=== PATIENT | male | born 1985 | race Two or more races ===

== ENCOUNTER 2024-05-27 16:40 | Emergency (ER) | payer SELFPAY ==
[2024-05-27 16:41] VITALS: BMI 32.8
[2024-05-27 17:00] VITALS: BP 149/95; PULSE 103; RESP 18; TEMP 37.1; O2SAT 97
--- NOTE | 2024-05-27 17:19 | XR_ITS ---
Examination: Duplex scan of the lower extremity, unilateral right complete Date and time of exam: May 27, 2024 6 1953 hrs. Indications: Right leg pain beginning 3 months ago, history knee surgery March 19, 2024 Technique: Duplex scan of the extremity veins using B-mode/grayscale imaging and Doppler spectral analysis and color flow Attention is directed to internal echogenicity, compression and augmentation involving these veins, color flow assessment, spectral analysis Findings: Major deep venous structures in the extremity demonstrate normal course and caliber. There is no evidence of deep vein thrombosis. Normal color flow and spectral analysis Impression: Negative for DVT..
--- NOTE | 2024-05-27 17:19 | XR_ITS ---
Examination: PA lateral chest 2 views Technique: Upright PA lateral chest 2 views Exam date and time: May 27, 2024 at 1720 hrs. Indications: Onset chest pain today. Findings: Normal heart size No pneumonia or pulmonary edema The osseous structures are intact Impression: No active disease
--- NOTE | 2024-05-27 17:19 | EKG_ITS ---
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
--- NOTE | 2024-05-27 17:20 | XR_ITS ---
Examination: CT brain head without contrast. 2-D sagittal coronal reconstructions Date and time of exam:May 27, 2024 1736 hrs. Indications: Headache dizziness paresthesias today CTDI: vol (mGy):55.9 DLP: (mGycm):1151 Technique: Multiple CT axial sections of the brain have been obtained, 5 mm slice thickness. Contrast has not been administered. 2-D sagittal, coronal reconstructions have been obtained Low dose protocols were performed. One or more of the following dose reduction techniques were used; automated exposure control, adjustment of the mA and/or KV according to patient size, use of iterative reconstruction technique. Findings: No significant ventricular enlargement. Intra-axial or extra-axial hemorrhage density is not seen. No mass effect or midline shift Basal cisterns are not remarkable. Fourth ventricle is midline. Cranial vault intact. Impression: Negative for acute hemorrhage, mass effect or midline shift Advise clinical correlation and follow-up accordingly
--- NOTE | 2024-05-27 17:27 | PD.EDRME ---
Rapid Medical Screening Exam RME Arrival date/time: 05/27/24 16:40 This is a 38-year-old male that comes in with complaints of entire body feeling tingly. Patient states that he is able to see but feels like everything looks pixelated at times. Patient reports feeling dizzy and states he that he feels like he is in a pass out. Patient denies chest pain and shortness of breath. Patient states that he picked up a dollar at the gym off the floor and does not know if his symptoms started after that or if this is even related. Patient states that he has had right leg pain specifically behind the knee for the past 8 months. Patient had a meniscus tear and has had swelling and redness around that area. Patient thinks that he has a blood clot. Patient denies any past medical history. I have greeted and performed a focused initial assessment of this patient. Initial appropriate labs ordered at this time. A comprehensive ED assessment and evaluation of the patient and analysis of all test and completion of medical decision making process will be conducted by additional ED provider. Chief Complaint: Dizziness Time Seen by Provider: 05/27/24 16:44 Vital signs: Vital Signs Temperature 98.8 F 05/27/24 17:00 Pulse Rate 103 H 05/27/24 17:00 Respiratory Rate 18 05/27/24 17:00 Blood Pressure 149/95 H 05/27/24 17:00 Pulse Oximetry (%) 97 05/27/24 17:00 Oxygen Delivery Method Room Air 05/27/24 17:00
[2024-05-27 18:10] LABS: Basophils % (Auto) 0 % (0-2.5); Eosinophils # (Auto) 0.1 Thou/mm3 (0.0-0.5); Eosinophils % (Auto) 1 % (0-10); Hematocrit 41.5 % (41.0-53.0); Hemoglobin 14.4 g/dL (13.5-16.0); Immature Granulocytes % (Auto) 0 % (0-0); Immature Granulocytes Auto 0.01 Thou/mm3 (0.00-0.00); Lymphocytes # (Auto) 1.8 Thou/mm3 (1.0-4.8); Lymphocytes % (Auto) 27 % (10-50); Mean Corpuscular HGB Conc 34.7 g/dl (31.0-37.0); Mean Corpuscular Hemoglobin 30.4 pg (25.0-35.0); Mean Corpuscular Volume 88 fL (80-100); Monocytes # (Auto) 0.5 Thou/mm3 (0.0-0.8); Monocytes % (Auto) 7 % (0-12); Neutrophils # (Auto) 4.4 Thou/mm3 (1.8-7.7); Neutrophils % (Auto) 65 % (37-80); Nucleated Red Blood Cell % 0 /100 WBC (0); Platelet Count 162 Thou/mm3 (140-440); RDW Standard Deviation 39.1 fL (35.1-43.9); Red Blood Count 4.73 Miln/mm3 (4.50-5.90); White Blood Count 6.7 Thou/mm3 (3.8-10.6)
[2024-05-27 18:17] LABS: Collection Type, Urine Voided; Squamous Epithelial Cell,Urine 0 /hpf (0-5)
[2024-05-27 18:24] LABS: Bilirubin,Urine Negative (Negative); Blood,Urine Negative (Negative); Clarity,Urine Clear (Clear/Hazy); Color,Urine Colorless (Lt Yel-Yel); Culture Indicated,Urine Not Indicated; Glucose, Urine Negative (Negative); Ketones,Urine Negative (Negative); Leukocyte Esterase,Urine Negative (Negative); Nitrite,Urine Negative (Negative); PH,Urine 6.5 (5.0-7.0); Protein,Urine Negative (Neg - Trace); RBC,Urine < 1 /hpf (0-3); Specific Gravity,Urine 1.007 (1.001-1.035); Urobilinogen,Urine Negative mg/dL (0.0-1.0); WBC,Urine < 1 /hpf (0-5)
[2024-05-27 18:25] LABS: Alanine Aminotransferase 56 U/L (10-49); Albumin, Serum 4.9 gm/dL (3.5-5.0); Albumin/Globulin Ratio 1.6 (1.2-2.2); Alkaline Phosphatase 59 U/L (46-116); Anion Gap 8 (7-16); Aspartate Amino Transferase 48 U/L (0-34); BUN/Creatinine Ratio 10 Ratio (12-20); Bilirubin,Total 0.5 mg/dL (0.3-1.2); Blood Urea Nitrogen 12 mg/dL (9-23); Carbon Dioxide 25.1 mMol/L (20.0-31.0); Chloride 109 mMol/L (98-107); Creatinine (Component) 1.2 mg/dL (0.6-1.3); Estimated Creatinine Clearance 101.6 mL/min (>60); Globulin 3.1 gm/dL (2.3-3.5); Glucose 101 mg/dL (74-106); Lipase 35 U/L (12-53); Osmolality,Calculated 282 (275-295); Potassium 3.9 mMol/L (3.4-5.1); Sodium 142 mMol/L (136-145); Troponin I < 0.002 ng/mL (0.0-0.045); eGFR > 60 See Note
[2024-05-27 18:30] LABS: Amphetamine/Methamp Scrn,U Negative (Negative); Barbiturate Screen,Urine Negative (Negative); Benzodiazepines Screen,Urine Negative (Negative); Benzoylecgonine Screen, Ur Negative (Negative); Fentanyl Screen,Urine Negative (Negative); Opiate Screen,Urine Negative (Negative); THC Screen,Urine Negative (Negative)
[2024-05-27 19:26] VITALS: BP 136/76; PULSE 92; RESP 18; TEMP 36.8; O2SAT 96
--- NOTE | 2024-05-27 21:11 | PD.EDADULT ---
ED General RME/HPI General Chief complaint: Dizziness Stated complaint: DIZZY, CHILLS, TINGLY EVERYWHERE STARTED TODAY Time Seen by Provider: 05/27/24 16:44 Arrival date/time: 05/27/24 16:40 CC: Multiple complaints including tingling in the body, numbness in his upper extremities chronic pain behind the right knee for 8 months. Patient has no primary care has no medications. Currently the patient has some heaviness in his arms bilaterally but no other complaints states all other symptoms have resolved. RME / HPI RME / HPI narrative: 05/27/24 16:40 This is a 38-year-old male that comes in with complaints of entire body feeling tingly. Patient states that he is able to see but feels like everything looks pixelated at times. Patient reports feeling dizzy and states he that he feels like he is in a pass out. Patient denies chest pain and shortness of breath. Patient states that he picked up a dollar at the gym off the floor and does not know if his symptoms started after that or if this is even related. Patient states that he has had right leg pain specifically behind the knee for the past 8 months. Patient had a meniscus tear and has had swelling and redness around that area. Patient thinks that he has a blood clot. Patient denies any past medical history. I have greeted and performed a focused initial assessment of this patient. Initial appropriate labs ordered at this time. A comprehensive ED assessment and evaluation of the patient and analysis of all test and completion of medical decision making process will be conducted by additional ED provider. Related Data Home Medications ?Medication ?Instructions ?Recorded ?Confirmed melatonin 10 mg tablet 10 mg PO HS PRN Insomnia 03/11/22 03/11/22 Allergies Allergy/AdvReac Type Severity Reaction Status Date / Time peanut Allergy Intermediate ITCHING Verified 05/27/24 16:45 shrimp Allergy Swelling Verified 05/27/24 16:45 of Lip/Tongue/Throat Review of Systems Review of Systems Narrative Review of Systems: GEN: No fever, no chills, no weight loss EYES: No discharge, no visual changes, no pain HEENT: No ear pain, no congestion, no sore throat PULM: No shortness of breath, no cough, no congestion CV: No chest pain, no dyspnea on exertion, no palpitations GI: No nausea, no vomiting, no diarrhea, no pain, no constipation : No frequency, no urgency, no dysuria MUSC/SKEL: + joint pain, no back pain SKIN: No rash PSYCH: No hallucinations, no depression HEME/LYMPH: No easy bleeding or bruising tendencies NEURO: No weakness, no headache,+ body tingling Past Medical History Past Medical History NEUROLOGIC: Negative Neurological Disorders, Seizures or Head Trauma CARDIAC: Negative Cardiac Disorders, Congestive Heart Failure, Edema, Cellulitis or Varicose Veins RESPIRATORY: Negative Chronic Obstructive Pulmonary Disease (COPD), Tuberculosis, Pulmonary Embolism or Sleep Apnea GASTROINTESTINAL: Negative Gastrointestinal Disorders or Hepatitis GENITOURINARY: Negative Genitourinary Disorders or Renal Disease MUSCULOSKELETAL: Negative Musculoskeletal Disorders ENT: Negative Head Trauma ENDOCRINE: Negative Endocrine Disorders, Diabetes Mellitus Type 1 or Diabetes Mellitus Type 2 HEMATOLOGIC: Negative Blood Disorders OTHER HISTORY: Positive Shingles (2018) and Chicken Pox; Negative Hospitalization, Autoimmune Disease, Falls, Blood Transfusions, Blood Transfusion Reaction, Anesthesia Reactions, Chemotherapy, Radiation Therapy, MRSA, Measles, Mumps or Cancer Family History FAMILY HISTORY: Positive Family Cardiac Disorders (FATHER ([place])) and Family Surgery (MOTHER); Negative Family Psychiatric Problems, Family Respiratory Disorders, Family Gastrointestinal Problems, Family Cancer or Family Anesthesia Reaction Surgical History SURGICAL: Negative Pacemaker Social History SMOKING STATUS: Former smoker SUBSTANCE USE: does not use ED Exam Narrative Physical exam: [General: Not in any acute distress Head normocephalic HEENT: Eyes pupils are PERRLA EOMs are intact hide the patient has mild sallow upper and lower lid color. Pupils are PERRLA EOMs are intact, all other subsystems of HEENT are within acceptable limits Neck is supple nontender Chest equal chest rise nontender to palpation Respiratory: Clear to auscultation no wheezes crackles or rubs CV: Rate rhythm is regular no murmurs rubs or clicks Abdomen is soft nontender no masses positive bowel sounds all 4 quadrants Back: No CVA tenderness no spinous process tenderness from cervical spine thoracic and lumbar spine Skin: Intact no petechiae rash induration ulceration or crepitus Extremities: Moving all extremity against resistance cap refill less than 2 seconds neurosensory intact Neuro: Awake alert oriented x3 Glascow coma 15 no focal deficits] Course Quality Measures none Orders Category Date Time Status EKG (ED ONLY) *Do not use* NOW Care 05/27/24 17:[address] head/brain wo con Stat Exams 05/27/24 17:20 Completed EKG (ED Only) Stat Exams 05/27/24 17:19 Draft US venous duplex LE RT Stat Exams 05/27/24 17:19 Taken XR chest 2V Stat Exams 05/27/24 17:19 Completed CBC Stat Lab 05/27/24 17:49 Completed Comprehensive Metabolic Panel Stat Lab 05/27/24 17:49 Completed Drug Screen,Urine Stat Lab 05/27/24 18:13 Completed Lipase Stat Lab 05/27/24 17:49 Completed Troponin I Stat Lab 05/27/24 17:49 Completed Urinalysis, C/S if Indicated Stat Lab 05/27/24 18:13 Completed Vital Signs Vital signs: Vital Signs Temperature 98.8 F 05/27/24 17:00 Pulse Rate 103 H 05/27/24 17:00 Respiratory Rate 18 05/27/24 17:00 Blood Pressure 149/95 H 05/27/24 17:00 Pulse Oximetry (%) 97 05/27/24 17:00 Oxygen Delivery Method Room Air 05/27/24 17:00 [facility] Patient data External records reviewed:: [facility] previous records Clinical information provided by:: patient Social determinants that could affect healthcare access:: none Patient has the following chronic illnesses:: None How is presenting disease/condition affected by chronic disease/condition?: uneffected by Evaluation data The following diagnostics were reviewed and interpreted by me:: lab results, radiology exam(s) and EKG tracing(s) Lab and/or radiology exams considered but not ordered:: EKG performed at 1725 shows a ventricular of 96 NE interval 153 QRS of 92 QTc of 399 normal sinus rhythm CBC shows no acute leukocytosis anemia thrombocytopenia CMP shows a chloride of 109 no other electrolyte imbalances renal impairment transaminitis is or T. bili elevation Lipase of 35 Urine is negative UDS is negative head CT is interpreted by me read by radiology as negative Ultrasound of the leg is negative for DVT. Interpretation Summary: The patient has no acute finding quires emergent or immediate intervention although I suspect the patient has sleep apnea secondary to the comment by significant other that he snores loudly and the sound will look around his eyes. Patient will be discharged to follow-up with a primary care provider and consider sleep apnea study. Medications Medications considered but not ordered:: None Medication administrations:: None Consultations Consultation(s) initiated? (list below): No Diagnosis Differential Diagnosis ED Complaint MDM: ACS OK headache Most likely diagnosis given after review of the tests above:: Leg pain Admission Indicated Admission indicated?: not indicated Explain why admission is indicated or not indicated:: None Admission Request Was there a request for admission?: No Disposition Plan Disposition Plan: Discharge Discharge Attestation Discharge Attestation: The patient and all family members were given an opportunity to ask questions and understood the discharge instructions. Discharge instructions specifically effects, indications for sooner follow up or return to the emergency department, and the expected course of current diagnosis. Patient condition: Stable Medical Decision Making Differential Diagnosis Differential Diagnosis: ACS [place] headache Lab Data 05/27/24 17:49 05/27/24 17:49 Labs: Lab Results 05/27/24 05/27/24 Range/Units 17:49 18:13 WBC 6.7 (3.8-10.6) Thou/mm3 RBC 4.73 (4.50-5.90) Miln/mm3 Hgb 14.4 (13.5-16.0) g/dL Hct 41.5 (41.0-53.0) % MCV 88 (80-100) fL MCH 30.4 (25.0-35.0) pg MCHC 34.7 (31.0-37.0) g/dl RDW Std Deviation 39.1 (35.1-43.9) fL Plt Count 162 (140-440) Thou/mm3 Neut % (Auto) 65 (37-80) % Lymph % (Auto) 27 (10-50) % [place] % (Auto) 7 (0-12) % Eos % (Auto) 1 (0-10) % Baso % (Auto) 0 (0-2.5) % Neut # (Auto) 4.4 (1.8-7.7) Thou/mm3 Lymph # (Auto) 1.8 (1.0-4.8) Thou/mm3 [place] # (Auto) 0.5 (0.0-0.8) Thou/mm3 Eos # (Auto) 0.1 (0.0-0.5) Thou/mm3 Baso # (Auto) 0.0 (0.0-0.2) Thou/mm3 Immature Gran # (Auto) 0.01 H (0.00-0.00) Thou/mm3 Absolute Nucleated RBC 0.00 (0.00-0.00) Thou/mm3 Immature Gran % 0 (0-0) % Nucleated RBC % 0 (0) /100 WBC Sodium 142 (136-145) mMol/L Potassium 3.9 (3.4-5.1) mMol/L Chloride 109 H (98-107) mMol/L Carbon Dioxide 25.1 (20.0-31.0) mMol/L Anion Gap 8 (7-16) BUN 12 (9-23) mg/dL Creatinine 1.2 (0.6-1.3) mg/dL Estim Creat Clear Calc 101.6 (>60) mL/min eGFR > 60 (60 - ) See Note BUN/Creatinine Ratio 10 L (12-20) Ratio Glucose 101 (74-106) mg/dL Calculated Osmolality 282 (275-295) Calcium 10.0 (8.3-10.6) mg/dL Corrected Calcium 10.0 (8.5-10.1) mg/dL Total Bilirubin 0.5 (0.3-1.2) mg/dL AST 48 H (0-34) U/L ALT 56 H (10-49) U/L Alkaline Phosphatase 59 (46-116) U/L Troponin I < 0.002 (0.0-0.045) ng/mL Total Protein 8.0 (5.7-8.2) gm/dL Albumin 4.9 (3.5-5.0) gm/dL Globulin 3.1 (2.3-3.5) gm/dL Albumin/Globulin Ratio 1.6 (1.2-2.2) Lipase 35 (12-53) U/L Ur Collection Type Voided Urine Color Colorless A (Lt Yel-Yel) Urine Clarity Clear (Clear/Hazy) Urine pH 6.5 (5.0-7.0) Ur Specific [place] 1.007 (1.001-1.035) Urine Protein Negative (Neg - Trace) Urine Glucose (UA) Negative (Negative) Urine Ketones Negative (Negative) Urine Blood Negative (Negative) Urine Nitrite Negative (Negative) Urine Bilirubin Negative (Negative) Urine Urobilinogen (Auto) Negative (0.0-1.0) mg/dL Ur Leukocyte Esterase Negative (Negative) Urine RBC < 1 (0-3) /hpf Urine WBC < 1 (0-5) /hpf Ur Squamous Epith Cells 0 (0-5) /hpf Urine Bacteria None (None) Ur Culture Indicated? Not Indicated Urine Opiates Screen Negative (Negative) Urine Fentanyl Screen Negative (Negative) Ur Barbiturates Screen Negative (Negative) U Amphetamin/Meth Scrn Negative (Negative) U Benzodiazepines Scrn Negative (Negative) U Cocaine Metab Screen Negative (Negative) U Marijuana (THC) Screen Negative (Negative) Discharge Plan Plan Patient Disposition: HOME (Self Care) Patient condition on transfer: Stable Prescriptions/Referrals Prescriptions/Med Rec: No Action melatonin 10 mg Tablet 10 mg PO HS PRN (Reason: Insomnia) Referrals: Juan J Malhotra MD [Physician] - In 1 week No Primary/Family,Physician [Primary Care Provider] - In 1 week Problem List Clinical Impression: Chronic leg pain, Body aches Patient/Caregiver Discharge Instructions Other Activity Instructions:: There is no acute finding in your workup including laboratory results CT imaging of your head EKG and chest x-ray. I would consider following up with a primary care provider and consider sleep apnea study. If there is a worsening of symptoms keep diary of the symptoms return the emergency room for reevaluation. Education Materials: Self-Care for Strains and Sprains Print Language: Macedonian Stand Alone Forms: Patsy Award Info., Work/School Release, Patient Portal Info Letter LATOSHA/RUDY Supervising Physician LATOSHA/RUDY Supervising Physician: Amaury Howard ENP
== END 2024-05-27 21:32 | disposition home or self-care (01) ==
PROVIDERS: Nurse Practitioner Family; Emergency Provider Emergency Medicine
DX: G89.29 Other chronic pain (principal); M79.604 Pain in right leg; R42 Dizziness and giddiness
CPT/HCPCS: 36415; 70450; 71046; 80053; 80307; 81001; 83690; 84484; 85025; 93005; 93971; 99284

== ENCOUNTER 2024-06-16 22:33 | Emergency (ER) | payer MEDICAID, SELFPAY ==
[2024-06-16 22:34] VITALS: BMI 32.1
--- NOTE | 2024-06-16 22:37 | EKG_ITS ---
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
--- NOTE | 2024-06-16 22:42 | PD.EDRME ---
Rapid Medical Screening Exam RME Arrival date/time: 06/16/24 22:33 Chief Complaint: General Adult/Misc Complain Vital signs: Vital Signs Temperature 98 F 06/16/24 22:47 Pulse Rate 90 06/16/24 22:47 Respiratory Rate 18 06/16/24 22:47 Blood Pressure 146/103 H 06/16/24 22:47 Pulse Oximetry (%) 98 06/16/24 22:47 RME Narrative: Chest pain started tonight. Also reports DONALDSON x1 week
--- NOTE | 2024-06-16 22:43 | XR_ITS ---
Examination: PA chest single view TECHNIQUE: Upright PA chest single view Exam date and time: June 16 2024 2149 hours INDICATIONS: Chest pain today. FINDINGS: Normal heart size Lungs are clear. The osseous structures are intact IMPRESSION: No active disease
[2024-06-16 22:47] VITALS: BP 146/103; PULSE 90; RESP 18; TEMP 36.6; O2SAT 98
[2024-06-16] MEDS: CYCLObenzaPRINE 5 MG TABLET 10 MG PO (23:27)
[2024-06-16] MEDS: KETOROLAC INJ 60 MG/2 ML VIAL 30 MG IM (23:27)
[2024-06-16 23:36] LABS: Basophils % (Auto) 0 % (0-2.5); Eosinophils # (Auto) 0.1 Thou/mm3 (0.0-0.5); Eosinophils % (Auto) 1 % (0-10); Hematocrit 39.8 % (41.0-53.0); Hemoglobin 13.8 g/dL (13.5-16.0); Immature Granulocytes % (Auto) 0 % (0-0); Immature Granulocytes Auto 0.01 Thou/mm3 (0.00-0.00); Lymphocytes # (Auto) 2.6 Thou/mm3 (1.0-4.8); Lymphocytes % (Auto) 38 % (10-50); Mean Corpuscular HGB Conc 34.7 g/dl (31.0-37.0); Mean Corpuscular Hemoglobin 30.6 pg (25.0-35.0); Mean Corpuscular Volume 88 fL (80-100); Monocytes # (Auto) 0.5 Thou/mm3 (0.0-0.8); Monocytes % (Auto) 8 % (0-12); Neutrophils # (Auto) 3.6 Thou/mm3 (1.8-7.7); Neutrophils % (Auto) 53 % (37-80); Nucleated Red Blood Cell % 0 /100 WBC (0); Platelet Count 153 Thou/mm3 (140-440); RDW Standard Deviation 39.7 fL (35.1-43.9); Red Blood Count 4.51 Miln/mm3 (4.50-5.90); White Blood Count 6.8 Thou/mm3 (3.8-10.6)
[2024-06-16 23:59] LABS: Alanine Aminotransferase 49 U/L (10-49); Albumin, Serum 4.7 gm/dL (3.5-5.0); Albumin/Globulin Ratio 1.5 (1.2-2.2); Alkaline Phosphatase 57 U/L (46-116); Anion Gap 10 (7-16); Aspartate Amino Transferase 33 U/L (0-34); BUN/Creatinine Ratio 12 Ratio (12-20); Bilirubin,Total 0.7 mg/dL (0.3-1.2); Blood Urea Nitrogen 14 mg/dL (9-23); Calcium 10.1 mg/dL (8.3-10.6); Calcium (Corrected) 10.1 mg/dL (8.5-10.1); Carbon Dioxide 26.2 mMol/L (20.0-31.0); Chloride 106 mMol/L (98-107); Creatinine (Component) 1.2 mg/dL (0.6-1.3); Estimated Creatinine Clearance 100.6 mL/min (>60); Globulin 3.2 gm/dL (2.3-3.5); Glucose 93 mg/dL (74-106); Osmolality,Calculated 283 (275-295); Potassium 3.8 mMol/L (3.4-5.1); Sodium 142 mMol/L (136-145); Total Protein 7.9 gm/dL (5.7-8.2); Troponin I < 0.002 ng/mL (0.0-0.045); eGFR > 60 See Note
[2024-06-17 00:11] LABS: B-Type Natriuretic Peptide < 20 pg/mL (0-100)
[2024-06-17 00:38] LABS: Collection Type, Urine Clean Catch; Squamous Epithelial Cell,Urine 0 /hpf (0-5)
[2024-06-17 00:44] LABS: Bilirubin,Urine Negative (Negative); Blood,Urine Negative (Negative); Clarity,Urine Clear (Clear/Hazy); Color,Urine Colorless (Lt Yel-Yel); Glucose, Urine Negative (Negative); Ketones,Urine Negative (Negative); Leukocyte Esterase,Urine Negative (Negative); Nitrite,Urine Negative (Negative); PH,Urine 6.5 (5.0-7.0); Protein,Urine Negative (Neg - Trace); RBC,Urine < 1 /hpf (0-3); Specific Gravity,Urine 1.004 (1.001-1.035); Urobilinogen,Urine Negative mg/dL (0.0-1.0); WBC,Urine < 1 /hpf (0-5)
[2024-06-17 00:53] LABS: Amphetamine/Methamp Scrn,U Negative (Negative); Barbiturate Screen,Urine Negative (Negative); Benzodiazepines Screen,Urine Negative (Negative); Benzoylecgonine Screen, Ur Negative (Negative); Fentanyl Screen,Urine Negative (Negative); Opiate Screen,Urine Negative (Negative); THC Screen,Urine Negative (Negative)
--- NOTE | 2024-06-17 00:59 | PD.EDCHEST ---
ED Chest Pain RME/HPI General Chief Complaint: General Adult/Misc Complain Stated Complaint: LEFT HAND TINGLING/ HEADACHE X 1WK Time Seen by Provider: 06/16/24 22:57 Source: patient, RN notes reviewed and old records reviewed Arrival date/time: 06/16/24 22:33 Mode of arrival: ambulatory Limitations: no limitations RME / HPI RME / HPI narrative: 38yom presents to ED for chest pain radiating to LUE that initiated this evening. Patient also reports posterior headache radiating to neck x1 week. Head and neck pain worsen with neck ROM. No fever, cough, shortness of breath, nausea/vomiting, dizziness, syncope or vision changes reported. No medications or treatment since symptom onset. Related Data Home Medications ?Medication ?Instructions ?Recorded ?Confirmed melatonin 10 mg tablet 10 mg PO HS PRN Insomnia 03/11/22 03/11/22 Previous Rx's ?Medication ?Instructions ?Recorded ibuprofen 600 mg tablet 600 mg PO Q6H PRN pain #30 tabs 06/17/24 lidocaine 5 % topical patch 1 patch topical QDAY #15 ea 06/17/24 methocarbamol 500 mg tablet 1,000 mg (2 x 500 mg) PO Q8H PRN 06/17/24 pain #30 tabs Allergies Allergy/AdvReac Type Severity Reaction Status Date / Time peanut Allergy Intermediate ITCHING Verified 05/27/24 16:45 shrimp Allergy Swelling Verified 05/27/24 16:45 of Lip/Tongue/Throat Review of Systems Review of Systems Systems Reviewed: All systems reviewed, normal except as documented Constitutional Constitutional: Denies chills, Denies fever(s) and Reports headache(s) Eyes Eyes: Denies blurry vision and Denies loss of vision ENT Ears, Nose, Mouth, and Throat: Denies dizziness, Reports headache(s) and Reports neck pain Cardiovascular Cardiovascular: Reports chest pain, Denies dyspnea and Denies syncope Respiratory Respiratory: Denies dyspnea Gastrointestinal Gastrointestinal: Denies nausea and Denies vomiting Musculoskeletal Musculoskeletal: Reports neck pain and Reports tingling (Left hand) Neurologic Neurologic: Denies dizziness, Denies localized weakness, Reports headache(s), Denies loss of vision, Denies syncope and Reports tingling (Left hand) Past Medical History Past Medical History GASTROINTESTINAL: Positive Obesity Social History SMOKING STATUS: Never smoker SUBSTANCE USE: does not use ALCOHOL: Current (social) ED Exam General Limitations: Present no limitations General appearance: Present alert and in no apparent distress Head Head exam: Present atraumatic and normocephalic Eye Eye exam: Present normal appearance, PERRL and EOMI ENT ENT exam: Present normal exam and mucous membranes moist Neck Neck exam: Present tenderness (right paraspinal cervical, no midline ttp) and other (decreased ROM to right) Chest Chest inspection: Present normal inspection and symmetric chest wall rise Respiratory Respiratory exam: Present normal lung sounds bilaterally; Absent respiratory distress Cardiovascular Cardiovascular exam: Present regular rate and normal rhythm Extremities Exam Extremities exam: Present normal inspection and full ROM; Absent pedal edema Back Exam Back exam: Present normal inspection and full ROM Neurological Exam Neurological exam: Present alert, oriented X3, CN II-XII intact and normal gait; Absent motor sensory deficit Psychiatric Psychiatric exam: Present anxious Skin Skin exam: Present warm, dry, intact and normal color Course Quality Measures none Orders Category Date Time Status EKG (ED ONLY) *Do not use* NOW Care 06/16/24 22:37 Completed CXR [XR chest 1V] Stat Exams 06/16/24 22:43 Completed EKG (ED Only) Stat Exams 06/16/24 22:37 Draft BNP [B-Type Natriuretic Peptide] Stat Lab 06/16/24 23:10 Completed CBC Stat Lab 06/16/24 23:10 Completed CMP [Comprehensive Metabolic Panel] Stat Lab 06/16/24 23:10 Completed Drug Screen,Urine Stat Lab 06/16/24 23:50 Completed Troponin I Stat Lab 06/16/24 23:10 Completed Troponin I Stat Lab 06/17/24 01:46 Completed UA [Urinalysis] Stat Lab 06/16/24 23:50 Completed CYCLObenzaPRINE [Flexeril] Med 06/16/24 23:12 Discontinued 10 mg PO X1 ONE Ketorolac Inj [Toradol Inj] Med 06/16/24 23:12 Discontinued 30 mg IM X1 ONE Vital Signs Vital signs: Vital Signs Temperature 98 F 06/16/24 22:47 Pulse Rate 90 06/16/24 22:47 Respiratory Rate 18 06/16/24 22:47 Blood Pressure 146/103 H 06/16/24 22:47 Pulse Oximetry (%) 98 06/16/24 22:47 Procedures -ED EKG Interpretation #1: Date of EK06/16/24 Rate: 90 Interpretation: Interpreted by me EKG Impression: Normal sinus rhythm, No acute ST-T changes, No ectopy, No ischemic changes, Normal QRS, Normal intervals and Normal axis Additional EKG comment: Nonspecific twave changes No stemi Chest Pain MDM Narrative MDM Narrative:: 38yom presents to ED for chest pain radiating to LUE that initiated this evening. Patient also reports posterior headache radiating to neck x1 week. Head and neck pain worsen with neck ROM. No fever, cough, shortness of breath, nausea/vomiting, dizziness, syncope or vision changes reported. No medications or treatment since symptom onset. ED workup reassuring. Heart score of 1 (pmhx obesity). Recommended follow-up with PCP as needed. Stable for discharge, RTED precautions given. Patient data External records reviewed:: [facility] previous records (05/27/2024 ED visit for body aches) Clinical information provided by:: patient Social determinants that could affect healthcare access:: other (specify) (Poor access to healthcare) Patient has the following chronic illnesses:: Obesity How is presenting disease/condition affected by chronic disease/condition?: exacerbated by Evaluation data The following diagnostics were reviewed and interpreted by me:: lab results, radiology exam(s) and EKG tracing(s) Lab and/or radiology exams considered but not ordered:: CT head: No red flag signs or symptoms, patient is neurologically intact Interpretation Summary: CXR shows no acute process per my read Negative Trop x2 Medications / Prescriptions Medications or Prescriptions considered but not ordered:: No antibiotics recommended at this time Medication administrations:: Medication Administration History Discontinued Medications Cyclobenzaprine HCl (Cyclobenzaprine 5 Mg Tablet) 10 mg PO X1 ONE Stop: 06/16/24 23:13 Last Admin: 06/16/24 23:27 Dose: 10 mg Documented By: SHIRLEY Ketorolac Tromethamine (Ketorolac Inj 60 Mg/2 Ml Vial) 30 mg IM X1 ONE Stop: 06/16/24 23:13 Last Admin: 06/16/24 23:27 Dose: 30 mg Documented By: SHIRLEY Above medications administered in ED Consultations Consultation(s) initiated? (list below): No Diagnosis Chest Pain Differential Diagnosis: fracture of rib, pneumothorax, stable angina, atypical chest pain, st elevation myocardial infarction, costochondritis and chest pain Most likely diagnosis given after review of the tests above:: Chest pain, headache Admission Indicated Admission indicated?: not indicated Admission Request Was there a request for admission?: No Disposition Plan Disposition Plan: Discharge Discharge Attestation Discharge Attestation: The patient and all family members were given an opportunity to ask questions and understood the discharge instructions. Discharge instructions specifically effects, indications for sooner follow up or return to the emergency department, and the expected course of current diagnosis. Patient condition: Stable Discharge Plan Plan Patient Disposition: HOME (Self Care) Patient condition on transfer: Stable Prescriptions/Referrals Prescriptions/Med Rec: New ibuprofen 600 mg tablet 600 mg PO Q6H PRN (Reason: pain) Qty: 30 0RF lidocaine 5 % adhesive patch,medicated 1 patch topical QDAY Qty: 15 0RF Rx Instructions: leave on most painful area for up to 12 hrs methocarbamol 500 mg tablet 1,000 mg PO Q8H PRN (Reason: pain) Qty: 30 0RF No Action melatonin 10 mg Tablet 10 mg PO HS PRN (Reason: Insomnia) Referrals: No Primary/Family,Physician [Primary Care Provider] - In 1 week Problem List Clinical Impression: Chest pain, Headache Patient/Caregiver Discharge Instructions Education Materials: Self-Care for Headaches, ED Chest Pain, Uncertain Cause Print Language: Belarusian Stand Alone Forms: Patsy Award Info., Patient Portal Info Letter PA/AIR TRAFFIC INSTRUCTOR Supervising Physician PA/RUDY Supervising Physician: Senia
[2024-06-17 02:15] LABS: Troponin I < 0.002 ng/mL (0.0-0.045)
[2024-06-17 02:29] VITALS: BP 135/80; PULSE 86; RESP 18; TEMP 36.7; O2SAT 98
== END 2024-06-17 02:32 | disposition home or self-care (01) ==
PROVIDERS: Physician Assistant; Emergency Provider Emergency Medicine
DX: R07.9 Chest pain, unspecified (principal); R51.9 Headache, unspecified
CPT/HCPCS: 36415; 71045; 80053; 80307; 81001; 83880; 84484; 85025; 93005; 96372; 99283; J1885; A9270

== ENCOUNTER 2024-09-21 00:51 | Emergency (ER) | payer SELFPAY ==
--- NOTE | 2024-09-21 00:55 | EKG_ITS ---
[facility] Test Date: 2024-09-21 Pat Name: RAMIRO GOMEZ Department: Room: - Gender: Male [employer]ic: : 1985 Requested By: ED Temporary Provider Order Number: [id number] Reading MD: ED Temporary Provider Measurements Intervals [place] Rate: 82 P: 34 LA: 148 QRS: 28 QRSD: 102 T: 0 QT: 395 QTc: 463 Interpretive Statements SINUS RHYTHM Compared to ECG 06/16/2024 22:45:40 T-wave abnormality no longer present /store/S0/[id number].pdf
[2024-09-21 01:01] VITALS: BP 144/82; PULSE 81; RESP 18; TEMP 36.6; O2SAT 98
[2024-09-21] MEDS: DIAZEPAM 5 MG TABLET 10 MG PO (01:40)
[2024-09-21 02:08] VITALS: RESP 16
--- NOTE | 2024-09-21 05:52 | EDNOTE_ITS ---
<Statement entered by Mary Baez MD - 09/21/24 18:52> As co-signing physician, I was present and available for consult prn. I concur with the plan and care as documented by the midlevel provider. ED Anxiety RME/HPI General Chief Complaint: General Adult/Misc Complain Stated Complaint: DIZZY,NAUSEA,CP Time Seen by Provider: 09/21/24 01:23 Arrival date/time: 09/21/24 00:51 39M with no significant PMH presents to ED with episode earlier of CP, dizziness, N/V, and full body numbness/tingling. Patient felt better prior to arrival in ED. Limitations: no limitations Related Data Home Medications ?Medication ?Instructions ?Recorded ?Confirmed melatonin 10 mg tablet 10 mg PO HS PRN Insomnia 03/11/22 Previous Rx's ?Medication ?Instructions ?Recorded ibuprofen 600 mg tablet 600 mg PO Q6H PRN pain #30 t abs 06/17/24 lidocaine 5 % topical patch 1 patch topical QDAY #15 e a 06/17/24 methocarbamol 500 mg tablet 1,000 mg (2 x 500 mg) PO Q 8H PRN 06/17/24 pain #30 tabs Allergies Allergy/AdvReac Type Severity Reaction Status Date / Time peanut Allergy Intermediate ITCHING Verified 05/27/24 16:45 shrimp Allergy Swelling Verified 05/27/24 16:45 of Lip/Tongue/Throat Review of Systems Review of Systems Systems Reviewed: All systems reviewed, normal except as documented Constitutional Constitutional: Reports system reviewed and no additional complaints, except as documented, Denies fever(s) and Denies headache(s) ENT Ears, Nose, Mouth, and Throat: Reports as per HPI, Denies disequilibrium, Denies headache(s) and Reports vertigo Cardiovascular Cardiovascular: Reports system reviewed and no additional complaints, except as documented, Reports as per HPI, Reports chest pain and Denies dyspnea Respiratory Respiratory: Reports system reviewed and no additional complaints, except as documented, Denies cough and Denies dyspnea Gastrointestinal Gastrointestinal: Reports system reviewed and no additional complaints, except as documented, Reports as per HPI, Denies abdominal pain, Reports nausea and Reports vomiting Musculoskeletal Musculoskeletal: Reports numbness and Reports tingling Neurologic Neurologic: Reports system reviewed and no additional complaints, except as documented, Reports as per HPI, Denies confusion, Denies disequilibrium, Denies headache(s), Reports numbness, Reports tingling and Reports vertigo Psychiatric Psychiatric: Denies confusion Past Medical History Past Medical History NEUROLOGIC: Negative Neurological Disorders, Seizures or Head Trauma CARDIAC: Negative Cardiac Disorders, Congestive Heart Failure, Edema, Cellulitis or Varicose Veins RESPIRATORY: Negative Chronic Obstructive Pulmonary Disease (COPD), Tuberculosis, Pulmonary Embolism or Sleep Apnea GASTROINTESTINAL: Positive Obesity; Negative Gastrointestinal Disorders or Hepatitis GENITOURINARY: Negative Genitourinary Disorders or Renal Disease MUSCULOSKELETAL: Negative Musculoskeletal Disorders ENT: Negative Head Trauma ENDOCRINE: Negative Endocrine Disorders, Diabetes Mellitus Type 1 or Diabetes Mellitus Type 2 HEMATOLOGIC: Negative Blood Disorders OTHER HISTORY: Positive Shingles (2018) and Chicken Pox; Negative Hospitalization, Autoimmune Disease, Falls, Blood Transfusions, Blood Transfusion Reaction, Anesthesia Reactions, Chemotherapy, Radiation Therapy, MRSA, Measles, Mumps or Cancer Family History FAMILY HISTORY: Positive Family Cardiac Disorders (FATHER ([place])) and Family Surgery (MOTHER); Negative Family Psychiatric Problems, Family Respiratory Disorders, Family Gastrointestinal Problems, Family Cancer or Family Anesthesia Reaction Surgical History SURGICAL: Negative Pacemaker Social History SMOKING STATUS: Never smoker SUBSTANCE USE: does not use ED Exam General Limitations: Present no limitations General appearance: Present alert, in no apparent distress and anxious Head Head exam: Present atraumatic Eye Eye exam: Present normal appearance, PERRL and EOMI ENT ENT exam: Present normal exam, normal oropharynx and mucous membranes moist Neck Neck exam: Present normal inspection, full ROM and trachea midline Chest Chest inspection: Present normal inspection and symmetric chest wall rise Respiratory Respiratory exam: Present normal lung sounds bilaterally Cardiovascular Cardiovascular exam: Present regular rate, normal rhythm and normal heart sounds Abdominal Exam Abdominal exam: Present soft and normal bowel sounds Extremities Exam Extremities exam: Present normal inspection and full ROM Back Exam Back exam: Present normal inspection and full ROM Neurological Exam Neurological exam: Present alert, oriented X3 and CN II-XII intact Psychiatric Psychiatric exam: Present normal affect and normal mood Skin Skin exam: Present warm, dry, intact and normal color Course Quality Measures none Orders Category Date Time Status EKG (ED ONLY) *Do not use* NOW Care 09/21/24 00:55 Completed EKG (ED Only) Stat Exams 09/21/24 00:55 Draft Diazepam [Valium] Med 09/21/24 01:23 Discontinued 10 mg PO X1 ONE Vital Signs Vital signs: Vital Signs Temperature 97.9 F 09/21/24 01:01 Pulse Rate 81 09/21/24 01:01 Respiratory Rate 18 09/21/24 01:01 Blood Pressure 144/82 H 09/21/24 01:01 Pulse Oximetry (%) 98 09/21/24 01:01 Oxygen Delivery Method Room Air 09/21/24 01:01 Anxiety MDM Narrative MDM Narrative: 39M with no significant PMH presents to ED with episode earlier of CP, dizziness, N/V, and full body numbness/tingling. Patient felt better prior to arrival in ED. Physical exam reveals clear lungs. RRR. Normal WOB. Speech normal. Gait normal. Patient is afebrile, alert, but anxious. EKG is NSR. Valium relieved symptoms. Likely panic attack. Patient had had normal cardiac work-up 3 months ago here. Patient data External records reviewed:: [facility] previous records Clinical information provided by:: patient Social determinants that could affect healthcare access:: none Patient has the following chronic illnesses:: none How is presenting disease/condition affected by chronic disease/condition?: no chronic disease Evaluation data The following diagnostics were reviewed and interpreted by me:: EKG tracing(s) Lab and/or radiology exams considered but not ordered:: ordered Interpretation Summary: above Medications / Prescriptions Medications or Prescriptions considered but not ordered:: ordered Medication administrations:: Medication Administration History Discontinued Medications Diazepam (Diazepam 5 Mg Tablet) 10 mg PO X1 ONE Stop: 09/21/24 01:24 Last Admin: 09/21/24 01:40 Dose: 10 mg Documented By: CVL Consultations Consultation(s) initiated? (list below): No Diagnosis Differential diagnosis anxiety: hyperventilation, panic disorder (attack) and acute anxiety Most likely diagnosis given after review of the tests above:: panic attack Admission Indicated Admission indicated?: not indicated Admission Request Was there a request for admission?: No Disposition Plan Disposition Plan: Discharge Discharge Attestation Discharge Attestation: The patient and all family members were given an opportunity to ask questions and understood the discharge instructions. Discharge instructions specifically effects, indications for sooner follow up or return to the emergency department, and the expected course of current diagnosis. Patient condition: Stable Discharge Plan Plan Patient Disposition: HOME (Self Care) Discharge Disposition comment: Stable Prescriptions/Referrals Prescriptions/Med Rec: No Action melatonin 10 mg Tablet 10 mg PO HS PRN (Reason: Insomnia) ibuprofen 600 mg tablet 600 mg PO Q6H PRN (Reason: pain) Qty: 30 0RF lidocaine 5 % adhesive patch,medicated 1 patch topical QDAY Qty: 15 0RF Rx Instructions: leave on most painful area for up to 12 hrs methocarbamol 500 mg tablet 1,000 mg PO Q8H PRN (Reason: pain) Qty: 30 0RF Referrals: Juan J Malhotra MD [Primary Care Provider] - In 1 week Problem List Clinical Impression: Panic attack Patient/Caregiver Discharge Instructions Education Materials: Panic Disorder Tx, ED Panic Attack Additional Instructions: Please follow-up with PCP within 24-48 hours and return immediately if symptoms worsen. Print Language: Armenian Stand Alone Forms: Patient Portal Info Letter LATOSHA/RUDY Supervising Physician LATOSHA/RUDY Supervising Physician: Dr. Baez
== END 2024-09-21 02:09 | disposition home or self-care (01) ==
PROVIDERS: Emergency Provider Emergency Medicine; PCP Family Medicine
DX: F41.0 Panic disorder [episodic paroxysmal anxiety] (principal); R42 Dizziness and giddiness
CPT/HCPCS: 93005; 99283; A9270